=== PATIENT | male | born 1985 | race Caucasian/White ===

== ENCOUNTER 2021-10-04 23:15 | Inpatient (IN) | payer SELFPAY ==
[~2021-10-04] VITALS: Ht 167.6 cm; Wt 114.5 kg
[2021-10-04] MEDS ORDERED: DEXAMETHASONE SOD PHOS 10 MG/ML VIAL. ONE (23:30)
--- NOTE | 2021-10-04 23:43 | PHYS DOC ---
Past History Past Medical History: No Pertinent History (TYRESE LATHAM GRINDING SUPERVISOR) Past Surgical History: No Surgical History, Appendectomy (TYRESE LATHAM GRINDING SUPERVISOR) Smoking: Non-smoker Alcohol Use: None Drug Use: None (TYRESE LATHAM APRN) General Adult HPI: HPI: Patient is a 36-year-old male that presents today via [facility] for increased shortness of breath since this morning. Patient states that 4 days ago he was tested for COVID-19 and was positive, he states that he saw his physician they gave him a tapering dose of prednisone and some Zithromax, and instructed him that if he should increase feel increased shortness of air to go to the emergency department. Patient states he woke up this morning with shortness of air progressively throughout the day has gotten more short of air. Per EMS report patient was room air sats of 84%, patient was placed on 4 L nasal cannula is currently satting about 96%. Patient had does appear to have increased work of breathing noted. Patient states he has 2 young children and a at home, and has not had Covid vaccines (TYRESE LATHAM GRINDING SUPERVISOR) Review of Systems: Review of Systems: Constitutional: Denies fever or chills Eyes: Denies change in visual acuity HENT: Denies nasal congestion or sore throat Respiratory: cough or shortness of breath Cardiovascular: chest pain GI: Denies abdominal pain, nausea, vomiting, bloody stools or diarrhea : Denies dysuria Musculoskeletal: Denies back pain or joint pain Integument: Denies rash Neurologic: Denies headache, focal weakness or sensory changes Endocrine: Denies polyuria or polydipsia Lymphatic: Denies swollen glands Psychiatric: Denies depression or anxiety (TYRESE LATHAM GRINDING SUPERVISOR) Current Medications: Current Meds: Current Medications Medications (Trade) Dose Ordered Sig/Maximino Start Time Stop Time Status Last Admin Dose Admin Dexamethasone Sodium Phosphate (Decadron) 10 mg 1X ONCE 10/04/21 23:45 10/04/21 23:46 UNV (TYRESE LATHAM GRINDING SUPERVISOR) Physical Exam: PE: Constitutional: Well developed, well nourished, mild distress, non-toxic appearance. [] HENT: Normocephalic, atraumatic, bilateral external ears normal, oropharynx moist, no oral exudates, nose normal. [] Eyes: PERRLA, EOMI, conjunctiva normal, no discharge. [] Neck: Normal range of motion, no tenderness, supple, no stridor. [] Cardiovascular:Heart rate regular rhythm, no murmur [] Lungs & Thorax: Bilateral breath sounds diminished breath sounds bilaterally, increased work of breathing noted, cough noted as well Abdomen: Bowel sounds normal, soft, no tenderness, no masses, no pulsatile masses. [] Skin: Warm, dry, no erythema, no rash. [] Back: No tenderness, no CVA tenderness. [] Extremities: No tenderness, no cyanosis, no clubbing, ROM intact, no edema. [] Neurologic: Alert and oriented X 3, normal motor function, normal sensory function, no focal deficits noted. [] Psychologic: Affect normal, judgement normal, mood normal. [] (TYRESE LATHAM APRN) Current Patient Data: Labs: Laboratory Tests Test 10/04/21 23:50 White Blood Count 5.0 x10^3/uL Red Blood Count 4.86 x10^6/uL Hemoglobin 14.9 g/dL Hematocrit 43.1 % Mean Corpuscular Volume 89 fL Mean Corpuscular Hemoglobin 31 pg Mean Corpuscular Hemoglobin Concent 35 g/dL Red Cell Distribution Width 13.0 % Platelet Count 223 x10^3/uL Neutrophils (%) (Auto) 59 % Lymphocytes (%) (Auto) 33 % Monocytes (%) (Auto) 7 % Eosinophils (%) (Auto) 0 % Basophils (%) (Auto) 1 % Neutrophils # (Auto) 3.0 x10^3uL Lymphocytes # (Auto) 1.6 x10^3/uL Monocytes # (Auto) 0.3 x10^3/uL Eosinophils # (Auto) 0.0 x10^3/uL Basophils # (Auto) 0.0 x10^3/uL Sodium Level 139 mmol/L Potassium Level 4.8 mmol/L Chloride Level 104 mmol/L Carbon Dioxide Level 27 mmol/L Anion Gap 8 Blood Urea Nitrogen 11 mg/dL Creatinine 0.7 mg/dL Estimated GFR (Cockcroft-Gault) 129.1 BUN/Creatinine Ratio 16 Glucose Level 113 mg/dL Lactic Acid Level 1.3 mmol/L Calcium Level 8.2 mg/dL Total Bilirubin 0.4 mg/dL Aspartate Amino Transf (AST/SGOT) 111 U/L Alanine Aminotransferase (ALT/SGPT) 117 U/L Alkaline Phosphatase 49 U/L Troponin I High Sensitivity 9 ng/L Total Protein 7.3 g/dL Albumin 2.9 g/dL Albumin/Globulin Ratio 0.7 Current Medications Medications (Trade) Dose Ordered Sig/Maximino Route PRN Reason Start Time Stop Time Status Last Admin Dose Admin Dexamethasone Sodium Phosphate (Decadron) 10 mg STK-MED ONCE .ROUTE 10/04/21 23:30 10/04/21 23:31 DC Dexamethasone Sodium Phosphate (Decadron) 10 mg 1X ONCE IVP 10/04/21 23:45 10/04/21 23:56 DC 10/04/21 23:59 Iohexol (Omnipaque 350 Mg/ml) 100 ml 1X ONCE IV 10/04/21 23:45 10/04/21 23:56 DC 10/05/21 00:15 Info (Do NOT chart on this entry -- for MONITORING) 1 each PRN DAILY PRN MC SEE COMMENTS 10/04/21 23:45 10/06/21 23:44 Vital Signs: Vital Signs Date Time Temp Pulse Resp B/P (MAP) Pulse Ox O2 Delivery O2 Flow Rate FiO2 10/04/21 23:20 98.8 77 24 112/62 (79) 96 Nasal Cannula 4.0 10/04/21 23:20 98.8 77 22 112/62 (79) 96 Room Air Vital Signs Date Time Temp Pulse Resp B/P (MAP) Pulse Ox O2 Delivery O2 Flow Rate FiO2 10/04/21 23:20 98.8 77 22 112/62 (79) 96 Room Air (TYRESE LATHAM APRN) EKG: EKG: EKG done at 0004, read at 0008, by Dr. Jones no STEMI normal sinus rhythm with a rate of 68 SD interval of 148 ms with a QT interval 410 ms [] (TYRESE LATHAM APRN) Radiology/Procedures: Radiology/Procedures: [] (TYRESE LATHAM APRN) Radiology/Procedures: PROCEDURE: CT ANGIOGRAPHY CHEST Study: CT CHEST WITH CONTRAST - PULMONARY ANGIOGRAM History: Shortness of air, Covid positive. Comparison: None Technique: Helical CT of the chest performed after the administration of 100 mL Omnipaque 350 intravenous contrast and timed for angiographic evaluation of the pulmonary arteries per PE protocol. Coronal and sagittal 3D MIP reformations were obtained. One or more of the following individualized dose reduction techniques were util ized for this examination: 1. Automated exposure control 2. Adjustment of the mA and/or kV according to patient size 3. Use of iterative reconstruction technique. Findings: Pulmonary Arteries: Contrast bolus is adequate. There is no acute pulmonary e mbolism in the main, lobar, and segmental pulmonary arteries. Heart/Systemic Vasculature: Heart is normal in size. No pericardial effusion. Thoracic aorta is normal in caliber. Mediastinum: Mildly enlarged mediastinal and hilar lymph nodes are likely robby ctive Lungs: Moderate patchy opacities throughout both lungs consistent with atypical pneumonia. No pleural effusion. Neck/Axilla/Body Wall: No axillary lymphadenopathy. Visualized portion of the thyroid gland is unremarkable. Upper Abdomen: Unremarkable. Bones: No acute osseous abnormality. IMPRESSION: 1. No acute pulmonary embolism. 2. Multifocal patchy bilateral opacities consistent with atypical pneumonia. Electronically signed by: Kay Levaitt MD (10/05/2021 1:32 AM) [facility] (ALBINO JONES DO) Heart Score: C/O Chest Pain: Yes HEART Score for Chest Pain: HEART Score for Chest Pain Response (Comments) Value History Slighlty/Non-Suspicious 0 ECG Normal 0 Age < 45 0 Risk Factors No Risk Factors 0 Troponin < Normal Limit 0 Total 0 Risk Factors: Risk Factors: DM, Current or recent (<one month) smoker, HTN, HLP, family history of CAD, obesity. Risk Scores: Score 0 - 3: 2.5% MACE over next 6 weeks - Discharge Home Score 4 - 6: 20.3% MACE over next 6 weeks - Admit for Clinical Observation Score 7 - 10: 72.7% MACE over next 6 weeks - Early Invasive Strategies (TYRESE LATHAM APRN) Course & Med Decision Making: Course & Med Decision Making Pertinent Labs and Imaging studies reviewed. (See chart for details) 0040 spoke to patient about lab results continue to await radiological read of the CTA. Informed patient that since his need for oxygen he will need to be admitted for further management by the coal shooter, patient is agreeable to admission. Spoke to Dr. Nguyen and he has agreed to accept admission. (TYRESE LATHAM APRN) Dragon Disclaimer: Dragon Disclaimer: This electronic medical record was generated, in whole or in part, using a voice recognition dictation system. (TYRESE LATHAM APRN) Departure Departure: Impression: Primary Impression: Respiratory distress Additional Impression: COVID-19 Disposition: ADMITTED INPATIENT Admitting Physician: Bertin Nguyen (TYRESE LATHAM APRN) Condition: STABLE Attending Signature Attending Signature I have reviewed the PA/DASHBOARD DEVELOPER's note and plan of care. I was available for consultation as needed during the patient's visit in the emergency department. I agree with the clinical impression, plan, and disposition. (ALBINO JONES DO) TYRESE LATHAM APRN Oct 04, 2021 23:43 ALBINO JONES DO Oct 05, 2021 05:46
[2021-10-04] MEDS ORDERED: CONTRAST GIVEN. MC PRN (23:45)
[2021-10-04] MEDS ORDERED: DEXAMETHASONE SOD PHOS 10 MG/ML VIAL. IVP ONE (23:45)
[2021-10-04] MEDS ORDERED: IOHEXOL 350 MG/ML 100 ML VIAL. IV ONE (23:45)
[2021-10-05 00:02] LABS: BASO % 1 % (0-3); EOS % 0 % (0-3); HEMATOCRIT 43.1 % (39.0-53.0); HEMOGLOBIN 14.9 g/dL (13.0-17.5); LYMPH # 1.6 x10^3/uL (1.0-4.8); LYMPH % 33 % (24-48); MEAN CORPUSCULAR HEMOGLOBIN 31 pg (25-35); MEAN CORPUSCULAR HGB CONC 35 g/dL (31-37); MEAN CORPUSCULAR VOLUME 89 fL (79-100); MONO # 0.3 x10^3/uL (0.0-1.1); MONO % 7 % (0-9); NEUT % 59 % (31-73); PLATELET COUNT 223 x10^3/uL (140-400); RED BLOOD COUNT 4.86 x10^6/uL (4.30-5.70)
[2021-10-05 00:11] LABS: CALCIUM 8.2 mg/dL (8.5-10.1); CREATININE 0.7 mg/dL (0.7-1.3); GFR 129.1
--- NOTE | 2021-10-05 00:13 | EKG ---
[address] [address] Test Date: 2021-10-05 Test Time: 00:04:44 Pat Name: JOE MERLOS Department: Room: Gender: M Tree Marker: : 1985 Requested By: TYRESE LATHAM Order Number: [id number] Reading MD: John Villagomez MD Measurements Intervals [place] Rate: 68 P: 0 NV: 148 QRS: 16 QRSD: 78 T: 11 QT: 410 QTc: 441 Interpretive Statements SINUS RHYTHM Electronically Signed On 10-05-2021 12:34:27 [facility]CH[facility] by John Villagomez MD
[2021-10-05 00:18] LABS: ALBUMIN 2.9 g/dL (3.4-5.0); ALBUMIN/GLOBULIN RATIO 0.7 (1.0-1.7); TOTAL BILIRUBIN 0.4 mg/dL (0.2-1.0); TOTAL PROTEIN 7.3 g/dL (6.4-8.2)
[2021-10-05 00:21] LABS: POTASSIUM 4.8 mmol/L (3.5-5.1)
[2021-10-05] MEDS ORDERED: ACETAMINOPHEN 325 MG TABLET PO PRN (00:45)
--- NOTE | 2021-10-05 01:35 | RAD ---
Study: CT CHEST WITH CONTRAST - PULMONARY ANGIOGRAM History: Shortness of air, Covid positive. Comparison: None Technique: Helical CT of the chest performed after the administration of 100 mL Omnipaque 350 intrav enous contrast and timed for angiographic evaluation of the pulmonary arteries per PE protocol. Coron al and sagittal 3D MIP reformations were obtained. One or more of the following individualized dose reduction techniques were utilized for this examinat ion: 1. Automated exposure control 2. Adjustment of the mA and/or kV according to patient size 3. Use of iterative reconstruction technique. Findings: Pulmonary Arteries: Contrast bolus is adequate. There is no acute pulmonary embolism in the main, lob ar, and segmental pulmonary arteries. Heart/Systemic Vasculature: Heart is normal in size. No pericardial effusion. Thoracic aorta is suleiman l in caliber. Mediastinum: Mildly enlarged mediastinal and hilar lymph nodes are likely reactive Lungs: Moderate patchy opacities throughout both lungs consistent with atypical pneumonia. No pleural effusion. Neck/Axilla/Body Wall: No axillary lymphadenopathy. Visualized portion of the thyroid gland is unrema rkable. Upper Abdomen: Unremarkable. Bones: No acute osseous abnormality. IMPRESSION: 1. No acute pulmonary embolism. 2. Multifocal patchy bilateral opacities consistent with atypical pneumonia. Electronically signed by: Kay Leavitt MD (10/05/2021 1:32 AM) [facility]
--- NOTE | 2021-10-05 02:15 | NUR ---
ADMISSION: The patient, JOE MERLOS, 36 y/o, M admitted by ABDULAZIZ WALSH MD, was given written information regarding hospital policies, unit procedures and contact persons. Pt arrived to room 103 via rney, accompanied by [facility] and ED staff. Pt amb independently from gurney to bed, steady gait noted. Pt tested positive for COVID-19 on 09/29 and was started on a prednisone taper along with zithromax on Monday, but reported SOA is worsening. Pt was found to be sating in the 80's on RA and was brought to ED by EMS. Pt on O2 at 4L via NC to keep sats in the mid-90's. Pt c/o moist, productive cough with thick blood-tinged sputum. Humidifier added to oxygen. Pt placed on telemetry, showing SR with HR in the 60's. PMH reviewed with pt. Pt takes no home meds aside from what was recently prescribed to treat his COVID infection. 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 POC discussed, V/U. Call light in reach. Valuables were checked and logged. Left in room with pt.
[2021-10-05 02:43] VITALS: BP 127/81
--- NOTE | 2021-10-05 03:00 | NUR ---
Dr. Nguyen paged and call back received. Notified of CT angio results and pt's c/o persistent cough. New orders received. See eMAR.
[2021-10-05] MEDS ORDERED: PRED-220 PO (04:37)
[2021-10-05] MEDS ORDERED: Z-PAK (04:37)
--- NOTE | 2021-10-05 04:37 | NUR ---
Pt's sister Merly Bingham called to check on pt. Update given.
[2021-10-05] MEDS: guaiFENesin/CODEINE 100mg/10mg 5 ML LIQUID PO PRN ×2 (04:50→21:08)
[2021-10-05 05:00] VITALS: BP 119/71
[2021-10-05] MEDS: AZITHROMYCIN 500 MG in IV NORMAL SALINE 250ML 250 ML IV SCH (05:36)
[2021-10-05] MEDS: DEXAMETHASONE SOD PHOS 4 MG/ML VIAL. IV SCH (10:23)
[2021-10-05] MEDS: LACTOBACILLUS RHAMNOSUS GG 1 CAPSULE. PO SCH ×2 (10:24→21:02)
[2021-10-05] MEDS: ENOXAPARIN 40 MG/0.4 ML SYRINGE. SQ SCH ×2 (10:24→21:03)
--- NOTE | 2021-10-05 10:56 | HP ---
DATE OF SERVICE: 10/05/2021 ADMIT DATE: 10/05/2021 ATTENDING PHYSICIAN: Dr. Nguyen. CHIEF COMPLAINT: Shortness of breath. HISTORY OF PRESENT ILLNESS: The patient is a 36-year-old gentleman, unfortunately unvaccinated. He has had a 1-week history of increasing shortness of breath, cough, and congestion. He tested positive for the coronavirus. CT of the chest demonstrated bilateral patchy nonspecific infiltrates in both lower lobes. His oxygen saturations were marginal at 84% on room air. He was given supplemental oxygen and admitted with respiratory failure and COVID pneumonia. PAST MEDICAL HISTORY: Unremarkable for any asthma or COPD. He has been not vaccinated. SOCIAL HISTORY: He is a nonsmoker, nondrinker. FAMILY HISTORY: Father of an aneurysm of the brain at age 44. Mom of hepatitis related to drug use in her late 40s. He is and lives with his and 2 children. He works at a local [employer] place. CURRENT MEDICATIONS: None. ALLERGIES: HE HAS ALLERGIES TO SULFA DRUGS, WHICH CAUSES A RASH. REVIEW OF SYSTEMS: Significant for the symptoms since . He has not been vaccinated. PHYSICAL EXAMINATION: GENERAL: When I saw him, this is a pleasant young gentleman. INITIAL VITAL SIGNS: Showed a blood pressure 117/57. He is afebrile. Oxygen saturation 91% on 4 liters by nasal cannula. HEENT: Head is without trauma. Pupils are reactive. Sclerae nonicteric. Oropharynx appears clear. NECK: Supple, no bruits identified. LUNGS: Minimal rhonchi. CARDIOVASCULAR: Regular heart tones. ABDOMEN: Soft. EXTREMITIES: Without edema. NEUROLOGIC: Focally intact. PERTINENT LABORATORY AND X-RAY STUDIES: Hemoglobin 14.9 grams. White count 5000. Electrolytes within normal range. CT chest as noted. ASSESSMENT: 1. A 36-year-old gentleman with COVID pneumonia. 2. Acute respiratory failure. 3. Obesity. PLAN: 1. Admit to the inpatient unit. 2. Decadron ordered. 3. Empiric Rocephin and Zithromax. 4. Empiric Lovenox. 5. Diet as tolerated. CESARIO DR: January TID: [id number]
[2021-10-05 11:00] VITALS: BP 149/78
[2021-10-05 15:12] VITALS: BP 108/55
[2021-10-05 19:51] VITALS: BP 122/69
[2021-10-05 23:36] VITALS: BP 122/75
[2021-10-06 06:00] VITALS: BP 122/72
[2021-10-06] MEDS: AZITHROMYCIN 500 MG in IV NORMAL SALINE 250ML 250 ML IV SCH (06:14)
[2021-10-06] MEDS: LACTOBACILLUS RHAMNOSUS GG 1 CAPSULE. PO SCH ×2 (08:43→20:44)
[2021-10-06] MEDS: guaiFENesin/CODEINE 100mg/10mg 5 ML LIQUID PO PRN ×2 (08:43→20:44)
[2021-10-06] MEDS: ENOXAPARIN 40 MG/0.4 ML SYRINGE. SQ SCH ×2 (08:43→20:44)
[2021-10-06] MEDS: DEXAMETHASONE SOD PHOS 4 MG/ML VIAL. IV SCH (08:44)
[2021-10-06] MEDS ORDERED: FLU VACC QUAD 21-22 (6MOS+) PF 0.5 ML SYRINGE. VAX IM ONE (09:00)
[2021-10-06 11:05] VITALS: BP 105/53
[2021-10-06 15:54] VITALS: BP 126/68
--- NOTE | 2021-10-06 18:30 | NUR ---
Nursing note PT in bed, verbalized no pain or discomfort. Oxygen flow rate reduced from 4.5 liters to 2 liters per doctors orders. PT verbalized no shortness of breath with reduction of oxygen, but shortness of breath with ambulation without oxygen. Vitals within normal range for PT. PT verbalized no order needs, call light within reach, bed in low position.
[2021-10-06 19:00] VITALS: BP 115/70
--- NOTE | 2021-10-06 20:21 | PN ---
DATE: 10/06/2021 SUBJECTIVE: The patient is sitting at the edge of the bed comfortably, in no apparent distress. He continued to have some cough and shortness of breath, particularly on exertion. Denies any phlegm. Denies any chills, rigors, or fever. He apparently tested positive for COVID about a week ago, was admitted yesterday and was started on IV antibiotic, IV remdesivir, IV dexamethasone, as well as Lovenox. PHYSICAL EXAMINATION: GENERAL: When I saw him today, he looked well and was clearly in no apparent respiratory distress. No pallor, jaundice, cyanosis, or thyromegaly. No jugular venous distention. No limb edema. VITAL SIGNS: His heart rate was 56, blood pressure is 105/53, temperature 97.9, respiratory rate 20, and oxygen saturation was 94%. In fact, the patient was 98% on 4 liters of oxygen. HEAD, EYES, EARS, NOSE, AND THROAT: Normocephalic, atraumatic. NECK: Supple. HEART: Normal first and second heart sounds, no gallop or murmur. CHEST: Shows central trachea, equally reduced expansion, reduced air entry, vesicular breath sounds. I could not really appreciate any crepitation or rhonchi. ABDOMEN: Distended, soft, nontender. NEUROLOGIC: He was grossly intact. His intake and output are incompletely recorded. LABORATORY DATA: His most recent lab work showed a white cell count 5000, hemoglobin 15, hematocrit 43, MCV 89, and platelet count 223,000 with normal manual differential. Serum sodium 139, potassium 4.8, chloride 104, bicarbonate 27, anion gap of 8, BUN 11, creatinine was 0.7. Estimated GFR was 129 mL per minute. His glucose was 113. Lactic acid 1.3, calcium was 8.2. Total bilirubin and alkaline phosphatase normal. AST, ALT are elevated. Total protein 7.3, albumin was 2.9. ASSESSMENT: 1. COVID-19 pneumonia. 2. Acute hypoxic respiratory failure. 3. Morbid obesity. PLAN: To continue with IV antibiotic. Continue with dexamethasone. Continue with Lovenox for DVT prophylaxis. Continue with oxygen supplementation. We will repeat all his lab work again and to a 6-minute walk tomorrow and if his oxygen saturation is above 90 on room air, we might be able to discharge him home to continue with oral steroids and oral antibiotic. BENJI DR: Vanessa TID: [id number]
[2021-10-06 23:00] VITALS: BP 104/56
[2021-10-07 05:00] VITALS: BP 110/62
[2021-10-07] MEDS: AZITHROMYCIN 500 MG in IV NORMAL SALINE 250ML 250 ML IV SCH (05:45)
[2021-10-07 06:57] LABS: BASO % 0 % (0-3); EOS % 0 % (0-3); HEMATOCRIT 40.7 % (39.0-53.0); HEMOGLOBIN 13.9 g/dL (13.0-17.5); LYMPH # 1.8 x10^3/uL (1.0-4.8); LYMPH % 28 % (24-48); MEAN CORPUSCULAR HEMOGLOBIN 30 pg (25-35); MEAN CORPUSCULAR HGB CONC 34 g/dL (31-37); MEAN CORPUSCULAR VOLUME 89 fL (79-100); MONO # 0.7 x10^3/uL (0.0-1.1); MONO % 12 % (0-9); NEUT # 3.9 x10^3uL (1.8-7.7); NEUT % 60 % (31-73); PLATELET COUNT 278 x10^3/uL (140-400); RED BLOOD COUNT 4.57 x10^6/uL (4.30-5.70); RED CELL DISTRIBUTION WIDTH 12.7 % (11.5-14.5); WHITE BLOOD COUNT 6.5 x10^3/uL (4.0-11.0)
[2021-10-07 07:11] LABS: ALBUMIN 2.6 g/dL (3.4-5.0); ALBUMIN/GLOBULIN RATIO 0.7 (1.0-1.7); CALCIUM 8.1 mg/dL (8.5-10.1); GFR 85.5; POTASSIUM 3.8 mmol/L (3.5-5.1); TOTAL BILIRUBIN 0.4 mg/dL (0.2-1.0); TOTAL PROTEIN 6.6 g/dL (6.4-8.2)
[2021-10-07] MEDS: ENOXAPARIN 40 MG/0.4 ML SYRINGE. SQ SCH (08:46)
[2021-10-07] MEDS: LACTOBACILLUS RHAMNOSUS GG 1 CAPSULE. PO SCH (08:46)
[2021-10-07] MEDS: DEXAMETHASONE SOD PHOS 4 MG/ML VIAL. IV SCH (08:47)
[2021-10-07 10:57] VITALS: BP 121/69
[2021-10-07] MEDS ORDERED: CEFD300C PO (13:11)
[2021-10-07] MEDS ORDERED: AZIT250T PO (13:11)
[2021-10-07] MEDS ORDERED: DEXA6TAB6 PO (13:11)
--- NOTE | 2021-10-07 13:23 | NUR ---
DISCHARGE IV. discountinued. Heart monitor off. Pt is w/o SOB and tolerated ambulation in hallway at 94% spo2. Pt has personal belongings in possession. Discharge paperwork completed.
--- NOTE | 2021-10-07 13:49 | DS ---
HOSPITAL COURSE: The patient is sitting on the edge of the bed comfortably, in no apparent distress. On questioning him, he stated he is feeling much better. He has no shortness of breath, no cough, no phlegm. No chills, rigors or fever. He is maintaining his oxygen saturation at 94% on room air at rest, we are trying to do a 6-minute walk and if he desaturated, we will discharge him home with oxygen. PHYSICAL EXAMINATION: GENERAL: When I examined him, he looked well and was clearly in no apparent respiratory distress. No pallor, jaundice, cyanosis or thyromegaly. No jugular venous distention. No limb edema. VITAL SIGNS: His heart rate was 56, blood pressure was 121/69, temperature 97.7, respiratory rate 20, and oxygen saturation was 94% on room air. HEAD, EYES, EARS, NOSE, AND THROAT: Normocephalic, atraumatic. NECK: Supple. HEART: Showed normal first and second heart sounds, no gallop or murmur. CHEST: Shows central trachea, equal bilateral chest expansion, air entry, vesicular breath sounds. I could not really appreciate any crepitation or rhonchi. ABDOMEN: Distended, soft, nontender. NEUROLOGIC: He was grossly intact. His intake was 1500, no output was recorded. LABORATORY DATA: This morning showed a white cell count of 6500, hemoglobin 14, hematocrit 41, MCV 89, platelet count 278,000. His chemistry showed a serum sodium 138, potassium of 3.8, chloride 105, bicarbonate 25, anion gap of 8, BUN 17, creatinine 1, estimated GFR was 85 mL per minute. His glucose was 133, calcium was 8.1. Total bilirubin and alkaline phosphatase are normal. AST and ALT are slightly elevated. Total protein 6.6, albumin 2.6. DISCHARGE MEDICATIONS: He was discharged home to continue on azithromycin 250 mg once a day for 3 more days and cefdinir 300 mg capsule twice a day for 7 more days and dexamethasone 6 mg p.o. daily for 7 more days. FINAL DISCHARGE DIAGNOSES: 1. COVID-19 pneumonia. 2. Acute hypoxic respiratory failure, resolved. 3. Morbid obesity. TONIO DR: Vanessa TID: [id number]
== END 2021-10-07 14:04 | disposition home or self-care (01) | DRG 177 ==
LOC: ER 23:15 → 1 SOUTH 10-05 00:49
PROVIDERS: ADMIT Hospitalist; ATTEND Hospitalist
PROC: XW033E5 Introduction of Remdesivir Anti-infective into Peripheral Vein, Percutaneous Approach, New Technology Group 5 (ICD-10-PCS; principal; 2021-10-05)
DX: U07.1 COVID-19 (principal); J12.82 Pneumonia due to coronavirus disease 2019; J96.01 Acute respiratory failure with hypoxia; Z68.41 Body mass index [BMI] 40.0-44.9, adult; E66.01 Morbid (severe) obesity due to excess calories
CPT/HCPCS: 36415; 71275; 80053; 83605; 84484; 85025; 90471; 90686; 93005; 96374; J0456; J0696; J1100; J1650; J7050; Q9967; 99285-25